=== PATIENT | female | born 1990 | race Caucasian/White ===

== ENCOUNTER 2016-07-13 17:40 | Observation (INO) | payer OTHER ==
[~2016-07-13] VITALS: Ht 167.6 cm; Wt 104.3 kg
[~2016-07-13 17:40] MED LIST: MOTRIN800 MG PO; PRENATAL1 TA1 PO
== END 2016-07-13 20:00 | disposition home or self-care (01) ==
LOC: MLD 17:40
PROVIDERS: ADMIT Obstetrics & Gynecology; ATTEND Obstetrics & Gynecology
DX: O36.8120 Decreased fetal movements, second trimester, not applicable or unspecified (principal); Z3A.24 24 weeks gestation of pregnancy
CPT/HCPCS: 76805; G0378; Q0092

== ENCOUNTER 2016-10-21 10:18 | Inpatient (IN) | payer OTHER ==
[~2016-10-21] VITALS: Ht 167.6 cm; Wt 114.3 kg
[2016-10-21] MEDS ORDERED: NALBUPHINE 10 MG/ML AMP IVP PRN (11:00)
[2016-10-21] MEDS ORDERED: IBUPROFEN 800 MG TAB PO PRN (11:00)
[2016-10-21] MEDS ORDERED: CARBOPROST 250 MCG/ML AMP IM PRN (11:00)
[2016-10-21] MEDS ORDERED: METHYLERGONOVINE 0.2 MG/ML AMP IM SCH (11:00)
[2016-10-21] MEDS ORDERED: PROMETHAZINE 25 MG/ML VIAL IVP PRN (11:00)
[2016-10-21] MEDS ORDERED: OXYTOCIN 20 UNITS/LR PREMIX 1,000 ML IV SCH (11:10)
[2016-10-21 11:25] VITALS: BP 113/55
[2016-10-21] MEDS: LACTATED RINGERS 1,000 ML IV SCH ×2 (11:49→18:50)
[2016-10-21] MEDS ORDERED: OXYTOCIN 10 UNITS/ML VIAL IM SCH (12:00)
[2016-10-21] MEDS ORDERED: MISOPROSTOL 25 MCG TAB ONE (12:16)
[2016-10-21] MEDS ORDERED: MISOPROSTOL 25 MCG TAB VG SCH (12:30)
[2016-10-21] MEDS ORDERED: OXYTOCIN 20 UNITS/LR PREMIX 1,000 ML IV ONE (16:38)
[2016-10-21] MEDS ORDERED: NALBUPHINE HYDROCHLORIDE 10 MG/ML VIAL ONE (18:47)
[2016-10-21] MEDS ORDERED: PROMETHAZINE 25 MG/ML VIAL ONE (18:47)
[2016-10-21] MEDS ORDERED: LIDOCAINE 1% 500 MG/50 ML VIAL INJ SCH (19:55)
[2016-10-21] MEDS ORDERED: OXYTOCIN 10 UNITS/ML VIAL ONE (19:56)
[2016-10-21] MEDS ORDERED: LIDOCAINE 1% 50 ML ONE (19:56)
[2016-10-21] MEDS ORDERED: TEMAZEPAM 15 MG CAP PO PRN (20:35)
[2016-10-21] MEDS ORDERED: WITCH HAZEL 40 PAD PACKAGE TP PRN (20:35)
[2016-10-21] MEDS ORDERED: METHYLERGONOVINE 0.2 MG/ML AMP IM PRN (20:35)
[2016-10-21] MEDS ORDERED: HYDROcodone/APAP 5/325 MG 1 TAB TAB PO PRN (20:35)
[2016-10-21] MEDS ORDERED: OXYTOCIN 10 UNITS/ML VIAL IM PRN (20:35)
[2016-10-21] MEDS ORDERED: BENZOCAINE/MENTHOL 20%-0.5% 60 GM CAN TP PRN (20:35)
[2016-10-21] MEDS ORDERED: oxyCODONE/APAP 5/325 MG 1 TAB TAB PO PRN (20:35)
[2016-10-21] MEDS ORDERED: MEASLES, MUMPS, AND RUBELLA 1 VIAL SQVAC PRN (20:35)
[2016-10-21] MEDS ORDERED: DOCUSATE SOD/SENNA 50/8.6 MG 1 TAB PO SCH (21:00)
[2016-10-21] MEDS ORDERED: IBUPROFEN 800 MG TAB ONE (22:27)
--- NOTE | 2016-10-22 09:22 | NUR ---
PATIENT HAS BEEN SCREENED AND CATEGORIZED LOW NUTRITION RISK. PATIENT WILL BE SEEN WITHIN 7 DAYS OF ADMISSION. 10/27/[address]
[2016-10-22] MEDS: IBUPROFEN 800 MG TAB PO PRN ×2 (10:32→23:57)
[2016-10-22] MEDS ORDERED: DOCUSATE SOD/SENNA 50/8.6 MG 1 TAB PO SCH (21:00)
== END 2016-10-23 13:45 | disposition home or self-care (01) | DRG 560 ==
LOC: MLD 10:18 → MFCC 22:35
PROVIDERS: ADMIT Obstetrics & Gynecology; ATTEND Obstetrics & Gynecology
PROC: 10E0XZZ Delivery of Products of Conception, External Approach (ICD-10-PCS; principal; 2016-10-21)
PROC: 10907ZC Drainage of Amniotic Fluid, Therapeutic from Products of Conception, Via Natural or Artificial Opening (ICD-10-PCS; 2016-10-21)
PROC: 3E0P7GC Introduction of Other Therapeutic Substance into Female Reproductive, Via Natural or Artificial Opening (ICD-10-PCS; 2016-10-21)
PROC: 3E0234Z Introduction of Serum, Toxoid and Vaccine into Muscle, Percutaneous Approach (ICD-10-PCS; 2016-10-22)
DX: O70.0 First degree perineal laceration during delivery (principal); Z23 Encounter for immunization; Z37.0 Single live birth; Z3A.39 39 weeks gestation of pregnancy

== ENCOUNTER 2018-07-02 13:35 | Emergency (ER) | payer OTHER ==
[~2018-07-02] VITALS: Ht 167.6 cm; Wt 101.2 kg
[~2018-07-02 13:35] MED LIST changes: +IBUP-974 PO; -MOTRIN800 MG PO; +PREN-234 PO; -PRENATAL1 TA1 PO
[2018-07-02 13:49] VITALS: BP 107/63
--- NOTE | 2018-07-02 14:28 | NUR ---
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
--- NOTE | 2018-07-02 14:43 | NUR ---
PT TAKEN TO US VIA WHEELCHAIR
[2018-07-02 15:04] LABS: APPEARANCE,URINE HAZY (CLEAR); BILIRUBIN,URINE NEGATIVE (NEGATIVE); BLOOD, URINE NEGATIVE (NEGATIVE); COLOR,URINE YELLOW (YELLOW); LEUKOCYTE ESTERASE ,URINE 3+ (NEGATIVE); NITRITE, URINE NEGATIVE (NEGATIVE); PH,URINE 6.5 (5.0-9.0); UGLUCOSE NEGATIVE (NEGATIVE)
[2018-07-02 15:07] LABS: RBC,URINE 0-5 (RARE) /HPF (0-5); WBC,URINE 6-15 (FEW) /HPF (0-5)
[2018-07-02 15:10] LABS: BASOPHILS # (AUTO) 0.1 K/uL (0.00-0.22); BASOPHILS % (AUTO) 0.5 % (0.0-2.0); EOSINOPHILS # (AUTO) 0.2 K/uL (0-0.4); EOSINOPHILS % (AUTO) 1.4 % (0.0-4.0); HEMATOCRIT 38.5 % (36-48); HEMOGLOBIN 12.7 g/dL (12.0-16.0); LYMPHOCYTES # (AUTO) 2.4 K/uL (2.5-16.5); LYMPHOCYTES % (AUTO) 21.2 % (20.5-51.1); MEAN CORPUSCULAR HEMOGLOBIN 29 pg (27-31); MEAN CORPUSCULAR HGB CONC 33 g/dL (33-37); MEAN CORPUSCULAR VOLUME 89.3 fL (80-94); MONOCYTES # (AUTO) 0.7 K/uL (0.8-1.0); NEUTROPHILS # (AUTO) 7.9 K/uL (1.8-7.7); NEUTROPHILS % (AUTO) 70.9 % (42.2-75.2); PLATELET COUNT (AUTO) 250 K/uL (140-450); RED BLOOD CELL COUNT(AUTO) 4.31 MIL/uL (4.20-5.40); WHITE BLOOD COUNT (AUTO) 11.1 K/uL (4.8-10.8)
[2018-07-02 15:44] VITALS: BP 107/63
--- NOTE | 2018-07-02 15:45 | NUR ---
Patient discharged with v/s stable. Written and verbal after care instructions given and explained. Patient alert, oriented and verbalized understanding of instructions. Ambulatory with steady gait. All questions addressed prior to discharge. ID band removed. Patient advised to follow up with PMD. Rx of zofran and prenatals given. Patient educated on indication of medication including possible reaction and side effects. Opportunity to ask questions provided and answered.
== END 2018-07-02 15:45 | disposition home or self-care (01) ==
LOC: MED 13:35
DX: O26.891 Other specified pregnancy related conditions, first trimester (principal); R10.13 Epigastric pain; O21.9 Vomiting of pregnancy, unspecified; Z3A.01 Less than 8 weeks gestation of pregnancy; Z79.1 Long term (current) use of non-steroidal anti-inflammatories (NSAID); Z79.899 Other long term (current) drug therapy
CPT/HCPCS: 36415; 76801; 81001; 81025; 84702; 85025; 86900; 86901; 87086; 99284; Q0092